=== PATIENT | female | born 1965 | race Caucasian/White ===

== ENCOUNTER 2020-07-09 18:17 | Inpatient (IN) | payer OTHER ==
[~2020-07-09] VITALS: Ht 165.1 cm; Wt 108.9 kg
[2020-07-09 20:20] VITALS: BP 131/73
[2020-07-09 21:43] LABS: HEMATOCRIT 25.7 % (37.0-47.0); HEMOGLOBIN 8.6 gm/dL (12.0-15.0); MCH 27.9 pg (26.0-34.0); MCHC 33.4 g/dL (28.0-37.0); MCV 83.5 fL (80.0-100.0); RBC 3.07 mil/uL (4.20-5.00); RDW 15.9 % (10.5-14.5); WBC 8.6 thou/uL (4.0-11.0)
[2020-07-09 21:49] LABS: INR 1.1; PROTIME 10.8 Seconds (9.3-11.4)
[2020-07-10 00:18] VITALS: BP 124/74
[2020-07-10] MEDS ORDERED: WARFARIN SODIUM2 MG (00:45)
[2020-07-10] MEDS ORDERED: WARFARIN SODIUM6 MG PO (00:47)
[2020-07-10 02:35] LABS: HEMATOCRIT 24.9 % (37.0-47.0); HEMOGLOBIN 8.3 gm/dL (12.0-15.0); MCH 27.8 pg (26.0-34.0); MCHC 33.4 g/dL (28.0-37.0); MCV 83.3 fL (80.0-100.0); RBC 2.99 mil/uL (4.20-5.00); RDW 15.6 % (10.5-14.5); WBC 8.9 thou/uL (4.0-11.0)
[2020-07-10 02:43] LABS: CALCIUM 8.1 mg/dL (8.5-10.1); CREATININE 0.7 mg/dL (0.6-1.0); MAGNESIUM 1.5 mg/dL (1.8-2.4); POTASSIUM 3.2 mmol/L (3.5-5.1)
--- NOTE | 2020-07-10 03:09 | NUR ---
PT ADNITTED TO ROOM 204 FROM [facility] ON 07/09 @ 2029 DENTAL NURSE HERE TO SEE PT AT THAT TIME, VSS, NO SIGNS OF BLEEDING LAST BM WAS THIS MORNING, PAIN IN RUQ PRN MEDS GIVEN NEEDED, REMINDED TO REMAIN NPO AFTER MNOC, IV FLUIDS, HEPARIN AND PROTONIX INFUSING, MONITORING LABS, PLACED ON 2 L/NC PER RT, INSTRUCTED PT TO CALL FOR ASST UP TO HELP WITH EQUIPMENT, PT RESTING QUIETLY IN ROOM WILL CON'T TO MONITOR PER PPOC.
[2020-07-10 04:52] VITALS: BP 138/71
[2020-07-10 08:12] VITALS: BP 140/71
--- NOTE | 2020-07-10 13:17 | NUR ---
MARIBETH RECEIVED FOR P.T. EVAL AND TREAT. CHART REVIEWED. Pt ADAMANTLY REFUSED P.T. 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 AT ALL. SHE STATES THAT SHE DOESN'T KNOW WHY P.T. WAS EVEN ORDERED. WILL D/C P.T. AT THIS TIME.
[2020-07-10 13:42] VITALS: BP 133/51
--- NOTE | 2020-07-10 16:54 | NUR ---
ASSESSMENT CHARTED - MEDS PER MAR - NO CO'S OF [place]. PT HAS BEEN NPO FOR EGD TODAY AND THEN FOR VIDEO CAPSULE SWALLOW. WILL BE ABLE TO HAVE CLEAR LIQUIDS AT 1730. PT GIVEN MORPHINE X 2 DOSES FOR CO'S OF PAIN WITH MOD - TO GOOD RELIEF. HEAPARIN PLACED ON HOLD FOR EGD - LAB DRAWN AND WILL RESUME WHEN RESULTS AVIALABLE. PROTONIX DRIP D/C'D. PT UP IN ROOM TOLDERATED - POTASSIUM AND MAG REPLENISHED ORDERED. NO CO'S AT THE PRESENR TIME.
[2020-07-10 17:06] VITALS: BP 147/60
[2020-07-10 19:35] VITALS: BP 138/71
--- NOTE | 2020-07-11 02:43 | NUR ---
ASSUMED CARE OF PATIENT AT 1900. PATIENT CONTINUES ON HEPARIN DRIP. ADJUSTED RATE ACCORDING TO HEPARIN FLOW SHEET. NO S/S OF ACTIVE BLEEDING. PATIENT C/O RIGHT SIDED ABDOMINAL PAIN. ADMINISTERED PRN MORPHINE ORDERED. PATIENT REMOVED MONITOR AT 2330 PER POST-OP INSTRUCTION.
[2020-07-11 03:25] LABS: URINE BILIRUBIN NEGATIVE (Negative); URINE BLOOD TRACE (Negative); URINE CLARITY CLEAR; URINE COLOR YELLOW; URINE GLUCOSE-RANDOM* NEGATIVE (Negative); URINE KETONES NEGATIVE (Negative); URINE LEUKOCYTES-REFLEX NEGATIVE (Negative); URINE NITRITE-REFLEX NEGATIVE (Negative); URINE PROTEIN (DIPSTICK) NEGATIVE (Negative); URINE SPECIFIC GRAVITY 1.025 (1.005-1.035)
[2020-07-11 05:30] LABS: HEMATOCRIT 24.9 % (37.0-47.0); HEMOGLOBIN 8.4 gm/dL (12.0-15.0); MCH 28.2 pg (26.0-34.0); MCHC 33.9 g/dL (28.0-37.0); MCV 83.2 fL (80.0-100.0); RBC 2.99 mil/uL (4.20-5.00); RDW 15.7 % (10.5-14.5)
[2020-07-11 05:50] VITALS: BP 139/65
[2020-07-11 06:38] LABS: APTT 51.3 Seconds (24.5-32.8)
[2020-07-11 07:40] VITALS: BP 131/57
[2020-07-11 09:21] LABS: INR 1.1
[2020-07-11 11:15] VITALS: BP 138/67
--- NOTE | 2020-07-11 11:48 | NUR ---
ASSUMING CARE MIDSTREAM D/T FRICTION BETWEEN PATIENT, ADULT DTR, AND PRISCILA THOMSON. REPORT FROM BERTO. ATTEMPTING SATISFACTION RECOVERY DESPITE BEING TOLD THIS IS THE WORST HOSPITAL THEY HAVE EVER BEEN TO.
--- NOTE | 2020-07-11 12:42 | P ---
[facility] [place] [address] PROCEDURE REPORT Name: MIGUEL FRIAS Room #: 204-P ADM IN M.R.#: [id number] Admission: 07/09/20 Attend Phys: Earle Salas Discharge: Date of : 69 Report #: [id number] THIS REPORT FOR: cc: FAVIAN - Family physician unknown FAVIAN - Family physician unknown Fran Aldrich MD ~ CC: FAVIAN unknown Earle Salas MD DATE OF SERVICE: 07/10/2020 PROCEDURE PERFORMED: Upper endoscopy. HISTORY OF PRESENT ILLNESS: The patient is a 55-year-old female who was admitted at [facility] for dyspnea on exertion. She has been having dark tarry stools at home on 07/05/2020. She is on Coumadin for history of mechanical aortic valve replacement. She also had a previous history of CVA and TIAs in the past, history of anemia in the past. Apparently, she has had EGD and colonoscopy 2 years ago for anemia that was negative. I do not have a copy of these results. She underwent blood transfusions at [facility]. Her INR at [facility] was in the 6-7 range. She was therefore given vitamin K as well as FFP. She was tested for COVID that was negative. She has been off her Coumadin, but on heparin. She was also started on a Protonix drip. Plan is for upper endoscopy. DESCRIPTION OF PROCEDURE: The risks and benefits of the procedure were explained to the patient, those risks including but not limited to bleeding, perforation and the risk of sedation. She understood these risks and gave informed consent. Sedation was given using propofol per anesthesia. Next, using a standard Olympus upper endoscope, the scope was placed in the patient's mouth and advanced under direct vision through the esophagus, stomach and into the third portion of the duodenum. The esophagus was normal throughout. The GE junction was normal. Overall, the gastric mucosa was normal other than very mild gastritis. No evidence of blood. No evidence of erosions or ulcerations. The pylorus was normal and patent. The duodenal bulb, first and second portion were normal. I advanced the scope into the third portion of the duodenum also normal. No evidence of blood. No AVMs were noted. At this point, the scope was then withdrawn and the procedure terminated. The patient tolerated the procedure well. IMPRESSION: 1. Mild gastritis. 2. Otherwise, normal upper endoscopy. RECOMMENDATIONS: No stigmata of bleeding on upper endoscopy today. The patient [address] [address] PROCEDURE REPORT Name: MIGUEL FRIAS Room #: 204-P [facility] IN ..#: [id number] Admission: 07/09/20 Attend Phys: Earle Salas Discharge: Date of : 69 Report #: [id number] had an EGD and colonoscopy apparently 2 years ago that was negative. She has never had an M2 capsule. I would recommend considering an M2 capsule next for further evaluation of her small bowel. In the meantime, continue PPI therapy and close monitoring of hemoglobin. Thank you for allowing me to participate in her care. <ELECTRONICALLY SIGNED> By: Fran Aldrich MD 07/11/20 1242 [id number] Fran Aldrich MD /nt
--- NOTE | 2020-07-11 14:53 | NUR ---
Patient admits from [facility] as a direct admit. Admits with GI bleed, hx of CVA. 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 Has health insurance. Casemgt avail cont to follow if needs arise.
--- NOTE | 2020-07-11 15:24 | NUR ---
BECOMES RIGID, DIMINISHED BLINK RESPONSE, DOES NOT FOLLOW COMMANDS, VERY LITTLE SPEECH IS UNCLEAR. ENTIRE BODY BECOMES STIFF. ADULT DTR AT BEDSIDE STATES ONSET WAS SUDDEN AND FOLLOWED NORMAL INTERACTION. RAPID RESPONSE CALLED. DR. TERRELL HERE. NON-CONTRAST HEAD CT ORDERED. TO CT BY BED, ACCOMPANIED BY AFSANEH, STAFFING ACCOUNT MANAGER.
--- NOTE | 2020-07-11 15:36 | NUR ---
RAPID RESPONSE TEAM ACTIVATED FOR AMS- PT SUDDENLY BECAME RIGID AND NON-VERBAL, STARING STRAIGHT AHEAD WITH NO RESPONSE TO VERBAL OR PHYSICAL STIMULI. DRT AT BEDSIDE. SEE LABORER/GRADE CHECK FLOWSHEET FOR FURTHER DETAILS.
--- NOTE | 2020-07-11 16:44 | NUR ---
Spoke with GI and hospitalist. Patient has small bowel AVMs will likely need transfer to another hospital. GI reports Dr Huffman at [facility] can likely see patient Thursday. Tenative plan for transfer to [facility] in am. Will call transfer team in am for bed status.
--- NOTE | 2020-07-11 16:59 | NUR ---
1645 SPOKE WITH PT AND DAUGHTER ABOUT VISITOR POLICY. EXPLAINED WHY PT'S SON COULD NOT COME IN SINCE THE DAUGHTER WAS ALREADY DESIGNATED VISITOR. ALSO INFORMED THEM OF THE PLAN TO TX PT TO [facility] ON THURSDAY FOR PROCEDURE THURSDAY. BOTH PT AND DAUGHTER SEEM AGREEABLE TO PLAN.
[2020-07-11 17:00] VITALS: BP 138/70
[2020-07-11 19:35] LABS: PROTIME 10.6 Seconds (9.3-11.4)
[2020-07-11 19:48] VITALS: BP 126/67
[2020-07-12 03:36] VITALS: BP 164/81
--- NOTE | 2020-07-12 03:36 | NUR ---
ASSUMED CARE OF PATIENT AT 1900. PATIENT WAS EXTREMELY UPSET OVER EVENTS THAT OCCURRED DURING DAY SHIFT. ATTEMPTED TO CALM/COMFORT PATIENT. ADMINISTERED PRN LORAZEPAM AT HS ORDERED FOR ANXIETY. AT APPROXIMATELY 2200 PATIENT HEARD SCREAMING. ON ASSESSMENT PATIENT STATED SHE HAD 8/10 PAIN IN LEFT KNEE. ADMINISTERED PRN PAIN MEDICATION. PATIENT ALSO AMBULATED TO SHOWER TO SIT LEGS UNDER HOT WATER. PATIENT STATED THAT SHE DOES THIS AT HOME TO HELP RELIEVE PAIN. PATIENT APPEARED TO REST WELL THE REMAINDER OF NOC. WILL CONTINUE TO MONITOR.
[2020-07-12 05:41] LABS: HEMATOCRIT 28.8 % (37.0-47.0); HEMOGLOBIN 9.5 gm/dL (12.0-15.0); MCH 27.7 pg (26.0-34.0); MCHC 33.1 g/dL (28.0-37.0); MCV 83.8 fL (80.0-100.0); RBC 3.43 mil/uL (4.20-5.00); RDW 15.6 % (10.5-14.5); WBC 8.2 thou/uL (4.0-11.0)
[2020-07-12 05:55] LABS: CALCIUM 8.9 mg/dL (8.5-10.1); CREATININE 0.7 mg/dL (0.6-1.0); POTASSIUM 3.8 mmol/L (3.5-5.1)
[2020-07-12 06:12] LABS: PROTIME 10.7 Seconds (9.3-11.4)
[2020-07-12 06:28] LABS: APTT 35.2 Seconds (24.5-32.8)
--- NOTE | 2020-07-12 07:54 | EKG ---
[facility] [place] [address] ELECTROCARDIOGRAM REPORT Name: MIGUEL FRIAS Room #: 204-P ADM IN M.R.#: [id number] Admission: 07/09/20 Attend Phys: Earle Salas Discharge: Date of : 69 Report #: [id number] THIS REPORT FOR: cc: FAM - Family physician unknown FAM - Family physician unknown Marty Alfaro MD [facility] ~ THIS REPORT FOR: //name// [facility] Test Date: 2020-07-11 Test Time: 17:31:49 Pat Name: MIGUEL FRIAS Department: Room: 204 P Gender: F Digital Campaign Manager: [id number] : [id number] Requested By: Lissette Barton Order Number: [id number] MD: Marty Alfaro Measurements Intervals [place] Rate: 83 P: 63 OH: 158 QRS: 46 QRSD: 87 T: 96 QT: 381 QTc: 448 Interpretive Statements Sinus rhythm Probable left atrial enlargement Nonspecific T abnormalities, lateral leads No previous ECG available for comparison Electronically Signed On 07-12-2020 7:54:32 CDT by Marty Alfaro [email or web address] <ELECTRONICALLY SIGNED> By: Marty Alfaro MD, FACC 07/12/20 0754 [id number] Marty Alfaro MD, [facility] /EPI
--- NOTE | 2020-07-12 08:26 | 2DMMODE ---
[facility] [place] [address] 2 D/M-MODE ECHOCARDIOGRAM Name: MIGUEL FRIAS Room #: 204-P ADM IN M.R.#: [id number] Admission: 07/09/20 Attend Phys: Earle Salas Discharge: Date of : 69 Report #: [id number] THIS REPORT FOR: cc: FAM - Family physician unknown FAM - Family physician unknown Felix Alcaraz MD ~ APPROVED REPORT Study performed: 07/12/2020 07:29:07 EXAM: Comprehensive 2D, Doppler, and color-flow Echocardiogram Patient Location: Bedside Room #: 204 Status: routine BSA: 2.14 HR: 72 bpm BP: 164/81 mmHg Rhythm: NSR Other Information Study Quality: Adequate Indications Aortic Vavle replacement. 2D Dimensions RVDd: 33.48 mm IVSd: 12.32 (7-11mm) LVDd: 45.23 mm PWd: 11.92 (7-11mm) Ascending Ao: 40.54 (22-36mm) LVDs: 27.27 (25-40mm) Aortic Root: 31.29 mm Volumes Left Atrial Volume (Systole) Single Plane 4CH: 45.23 mL Single Plane 2CH: 58.90 mL LA ESV Index: 27.00 mL/m2 Aortic Valve AoV Peak Jeff.: 3.64 m/s AO Peak Gr.: 52.90 mmHg AO Mean Gr.: 30.64 mmHg AO V2 Mean: 2.70 m/s AO V2 VTI: 71.98 cm [facility] [employer] [address] [place] [address] 2 D/M-MODE ECHOCARDIOGRAM Name: MIGUEL FRIAS Room #: 204-P [facility] IN M.R.#: [id number] Admission: 07/09/20 Attend Phys: Earle Wong Discharge: Date of : 69 Report #: [id number] Mitral Valve E/A Ratio: 1.3 MV Decel. Time: 216.39 ms MV E Max Jeff.: 1.21 m/s MV A Jeff.: 0.91 m/s MV PHT: 62.75 ms IVRT: 58.82 ms Pulmonary Valve PV Peak Jeff.: 1.90 m/s PV Peak Gr.: 14.51 mmHg Pulmonary Vein P Vein S: 0.51 m/s P Vein A: 0.29 m/s P Vein D: 0.47 m/s P Vein A Dur.: 121.1 msec P Vein S/D Ratio: 1.09 Tricuspid Valve RAP Estimate: 5.00 mmHg Left Ventricle The left ventricle is normal size. There is normal LV segmental wall motion. Mild concentric left ventricular hypertrophy. Left ventricular systolic function is normal. LVEF is 65%. Moderate diastolic dysfunction is present. Right Ventricle The right ventricle is normal size. The right ventricular systolic function is normal. Atria The left atrium size is normal. The right atrium size is normal. Aortic Valve History of mechanical aortic valve replacement. 21mm [place]enio. Peak pressure gradient of 53mmHg. Mean pressure gradient of 31mmHg. Moderate aortic regurgitation. Mitral Valve The mitral valve is normal in structure. Mild mitral annular calcification. Trace mitral regurgitation. No evidence of mitral valve stenosis. Tricuspid Valve The tricuspid valve is normal in structure. Trace tricuspid [facility] [address] [place] [address] 2 D/M-MODE ECHOCARDIOGRAM Name: MIGUEL FRIAS Room #: 204-P [facility] IN .R.#: [id number] Admission: 07/09/20 Attend Phys: Earle Wong Discharge: Date of : 69 Report #: [id number] regurgitation. Unable to assess PA pressure. Pulmonic Valve Pulmonic valve is not well visualized. Trace pulmonic regurgitation. Great Vessels The aortic root is normal in size. Ascending aorta is dilated (4.1cm). IVC is normal in size and collapses >50% with inspiration. Pericardium There is no pericardial effusion. <Conclusion> The left ventricle is normal size. LVEF is 65%. History of mechanical aortic valve replacement. 21mm [place] Eugenio. Peak pressure gradient of 53mmHg. Mean pressure gradient of 31mmHg. Moderate aortic regurgitation. The mitral valve is normal in structure. Mild mitral annular calcification. Trace mitral regurgitation. The tricuspid valve is normal in structure. Trace tricuspid regurgitation. Unable to assess PA pressure. Pulmonic valve is not well visualized. Trace pulmonic regurgitation. There is no pericardial effusion. <ELECTRONICALLY SIGNED> By: Felix Alcaraz MD 07/12/20825 5 5 Felix Alcaraz MD /INF
[2020-07-12 09:30] VITALS: BP 115/60
--- NOTE | 2020-07-12 10:46 | NUR ---
Spoke with [facility] transfer center. Faxed clinical information and uploaded to cloud for Menorah. Discussed GI phys spoke with Dr Frankel yesterday regarding patient with small bowel AVMS. Per GI Dr frankel might be able to schedule patient Thursday for procedure. Updated shift coordinator. [facility] possibly in am. Updated patient.
--- NOTE | 2020-07-12 16:39 | NUR ---
Cont to attempt to obtain transfer to [facility]. Sp with [facility] at 1530 still at capacity. Have updated patient and dtr who want to inquire into discharge. Messaged Dr Salas who sp with RN. Updated patient and dtr who have escalated with hostile behavior. Rn called security. Dr Welch and administration came to unit. Patient to dc today no further needs
--- NOTE | 2020-07-12 17:05 | NUR ---
ASSESSMENT CHARTED - MEDS PER YARED - PT GIVEN LORAZEPAM 0.5 MGS IV FOR CO'S OF ANXIETY WILL GOOD RELIEF AND PERCOCET X 1 TAB FOR CO'S OF PAIN IN R ARM AND SIDE F BODY WITH GOOD RELIEF. ONEAL DIET AND FLUIDS. - NO CO'S PAIN OR NAUSEA. UP AD CASS IN ROOM STEADY ON FEET. PT AND DAUGHTER BECAME VERY UPSET THIS AFTERNOON - WANTING RTO KNOW WHEN THE DOCTOR WOULD BE IN AND WHEN THEY COULD GO HOME - SPOKE WITH DR LANDON STATING PATIENT WANTING TO CO HOME AND HE STATED THAT SHE COULD NOT DUE TO BEING ON HEPARIN - INFORMED HIM SHE WAS NOT ON HEPARIN BUT LOVENOX. - HE STATED HE WOULD CALL CARDIOLOGY AND CALL BACK - CALLED BACK AND STATED THAT HEPARIN NEEDED TO BE RESTARTED - INFORMED PATIENT AND DAUGHTE OF THIS AND THEY BECAME VERY UPSET YELLING AND CURSING STATING THEY WERE TOLD THEY COULD GO HOME TODAY AND WHY IF SHE NEEDED THE HEPARIN HAD SHE NOT BEEN ON IT FOR THE LAST 24 HOURS - PATIENT REFUSED TO HAVE HEPARIN STATED , REMOVED MONITOR STATING SHE WOULD NOT WEAR IT AND REFUSED TO LEAVE IV IN. STATED THE ONLY REASON WE WANTED HER TO STAY WAS BECAUSE WE WANTED THE INSURNACE MONEY - REFUSED TO LEAVE AMA INSURANCE WOULD NOT PAY BILL - DR TERRELL NOTIFED AND HE CAME TO VISIT WITH PATIENT - PT CONTINUED TO REFUSE ALL CARES - PATIENT DISCHARGED HOME WITH DAUGHTER AND INSTRUCTED TO SEE DR DUFF AT [facility] TOMORROW - ATTMEPTED ONCE AGAIN TO EDUCATE PATIENT ON THE NEED FOR HEPARIN DUE FADIA NOT BEING ABLE TO TAKE COUMADIN - PATIENT STATED SHE WOULD FIGURE IT OUT - INSTRUCTION RE HOME CARE AND FOLLOW UP AND MEDS GIVEN TO PATIENT - STATED UNDERSTANDING OF INSTRUCTION GIVEN. PT LEFT UNIT AMBULATORY BY CHOICE - HOME VIA PVT VEHICLE ACCOMAPNIED BY DAUGHTER.
== END 2020-07-12 16:55 | disposition home or self-care (01) | DRG 378 ==
LOC: 2N 18:17
PROVIDERS: Nurse Practitioner; Nurse Practitioner Family; ADMIT Hospitalist; ATTEND Hospitalist
PROC: 0DJ08ZZ Inspection of Upper Intestinal Tract, Via Natural or Artificial Opening Endoscopic (ICD-10-PCS; principal; 2020-07-10)
DX: K29.71 Gastritis, unspecified, with bleeding (principal); D68.69 Other thrombophilia; D68.9 Coagulation defect, unspecified; I10 Essential (primary) hypertension; G47.33 Obstructive sleep apnea (adult) (pediatric); F17.210 Nicotine dependence, cigarettes, uncomplicated; E83.42 Hypomagnesemia; E87.6 Hypokalemia; Z95.4 Presence of other heart-valve replacement; Z79.01 Long term (current) use of anticoagulants; Z86.73 Personal history of transient ischemic attack (TIA), and cerebral infarction without residual deficits; Z90.49 Acquired absence of other specified parts of digestive tract; Z88.2 Allergy status to sulfonamides
CPT/HCPCS: 10081; 62110; 62900; 70005